=== PATIENT | male | born 1980 | race Caucasian/White ===

== ENCOUNTER 2017-04-16 16:38 | Emergency (ER) | payer SELFPAY ==
[~2017-04-16] VITALS: Ht 177.8 cm; Wt 66.2 kg
[2017-04-16 19:21] LABS: BASOPHIL % 0.3 % (0-2); PLATELET COUNT 297 x10^3mcL (130-400); RED CELL DISTRIBUTION WIDTH 13.7 % (11.5-14.5)
[2017-04-16 19:29] LABS: CALCIUM 9.1 mg/dL (8.5-10.1); CARBON DIOXIDE 20.8 mmol/L (21-32); CHLORIDE SERUM 99 mmol/L (98-107); CREATININE SERUM 0.9 mg/dL (0.7-1.3); GFR1 > 60 mL/min; GLUCOSE SERUM 90 mg/dL (74-106); POTASSIUM SERUM 3.1 mmol/L (3.5-5.1); SODIUM SERUM 137 mmol/L (136-145)
[2017-04-16 19:34] LABS: ALBUMIN 4.5 g/dL (3.4-5.0); ALKALINE PHOSPHATASE 73 U/L (46-116); ALT/SGPT 20 U/L (16-63); AST/SGOT 27 U/L (15-37); BILIRUBIN TOTAL 1.17 mg/dL (0.20-1.00)
[2017-04-16 19:35] LABS: TOTAL PROTEIN, SERUM 8.5 g/dL (6.4-8.2)
[2017-04-16 20:15] VITALS: BP 141/80
== END 2017-04-16 20:06 | disposition short-term general hospital (02) ==
LOC: ED 16:38
PROVIDERS: Specialist
DX: S02.32XA Fracture of orbital floor, left side, initial encounter for closed fracture (principal); S02.40EA Zygomatic fracture, right side, initial encounter for closed fracture; S02.2XXA Fracture of nasal bones, initial encounter for closed fracture; S01.01XA Laceration without foreign body of scalp, initial encounter; W50.0XXA Accidental hit or strike by another person, initial encounter; Y93.89 Activity, other specified; Y99.8 Other external cause status; Y92.89 Other specified places as the place of occurrence of the external cause
CPT/HCPCS: J0690

== ENCOUNTER 2017-04-26 15:13 | Emergency (ER) | payer SELFPAY ==
[~2017-04-26] VITALS: Ht 177.8 cm; Wt 68.9 kg
[2017-04-26 15:40] VITALS: BP 135/95
== END 2017-04-26 16:50 | disposition home or self-care (01) ==
LOC: ED 15:13
DX: S01.01XD Laceration without foreign body of scalp, subsequent encounter (principal); F17.210 Nicotine dependence, cigarettes, uncomplicated; F32.9 Major depressive disorder, single episode, unspecified; Z76.0 Encounter for issue of repeat prescription; Z86.59 Personal history of other mental and behavioral disorders; X58.XXXD Exposure to other specified factors, subsequent encounter

== ENCOUNTER 2018-05-25 08:35 | Emergency (ER) | payer OTHER ==
[~2018-05-25] VITALS: Ht 177.8 cm; Wt 64.0 kg
[2018-05-25 08:37] VITALS: Ht 177.8 cm; Wt 64.0 kg
[2018-05-25 10:27] VITALS: BP 149/101
== END 2018-05-25 10:27 | disposition home or self-care (01) ==
LOC: ED 08:35
DX: R07.89 Other chest pain (principal)
CPT/HCPCS: Q0092